=== PATIENT | male | born 1965 | race African-American/Black ===

== ENCOUNTER 2022-04-14 03:24 | Inpatient (IN) | payer BC, MEDICAID ==
[~2022-04-14] VITALS: Ht 180.3 cm; Wt 69.0 kg
[2022-04-14] MEDS ORDERED: SODIUM CHLORIDE 0.9% 1,000 ML IV ONE ×2 (04:15→08:00)
[2022-04-14] MEDS ORDERED: ONDANSETRON HCL 4 MG/2 ML VIAL IV ONE (04:15)
[2022-04-14 04:28] LABS: Basophils # (auto) 0.1 10 ^3/uL (0-0.2); Basophils % (auto) 0.4 % (0.0-2.0); Eosinophils # (auto) 0 10 ^3/uL (0-0.8); Hematocrit 39.4 % (41.0-53.0); Hemoglobin 13.5 g/dL (13.5-17.5); Lymphocytes # (auto) 1.1 10 ^3/uL (0.4-5.4); Lymphocytes % (auto) 7.9 % (10.0-50.0); Mean Corpuscular Hemoglobin 33.5 pg (28.0-32.0); Mean Corpuscular Hgb Conc. 34.1 g/dL (32.0-36.0); Mean Corpuscular Volume 98.2 fL (80.0-100.0); Monocytes # (auto) 1.1 10 ^3/uL (0-1.3); Monocytes % (auto) 8.1 % (0.0-12.0); Neutrophils # (auto) 11.5 10 ^3/uL (1.6-8.6); Neutrophils % (auto) 83.6 % (37.0-80.0); Red Blood Cells 4.02 10^6/uL (4.5-5.90); Red Cell Distribution Width 12.8 % (11.8-14.3); White Blood Cell 13.7 10^3/uL (4.4-10.8)
[2022-04-14 04:41] LABS: Potassium 3.3 mmol/L (3.5-5.1)
[2022-04-14 04:45] LABS: Albumin 3.6 g/dL (3.4-5.0); BUN/Creatinine Ratio 16.7; Calcium 9.2 mg/dL (8.5-10.1)
[2022-04-14 04:47] LABS: Bilirubin, Total 0.6 mg/dL (0.2-1.0); Total Protein 7.6 g/dL (6.4-8.2)
[2022-04-14] MEDS ORDERED: MORPHINE SULFATE 4 MG/ML SYR/VIAL IV ONE ×2 (05:45→08:00)
[2022-04-14] MEDS ORDERED: METOCLOPRAMIDE HCL 5MG/ml INJ 2ml VIAL IV ONE (08:00)
[2022-04-14] MEDS ORDERED: SODIUM CHLORIDE 0.9% 500 ML IVB ONE (08:00)
[2022-04-14] MEDS ORDERED: IOHEXOL 300 MG/ML 100ML BOTTLE IJ ONE (08:06)
[2022-04-14 08:58] LABS: Urine Bacteria NONE SEEN /hpf (None Seen); Urine Blood Negative /uL (Negative); Urine Specific Gravity 1.017 (1.001-1.035); Urine WBC 4 /hpf (0 - 3)
[2022-04-14] MEDS ORDERED: POTASSIUM EFFERVESENT TAB 25 MEQ PO ONE (10:00)
[2022-04-14] MEDS ORDERED: ONDANSETRON HCL 4 MG/2 ML VIAL IV PRN (12:00)
[2022-04-14] MEDS ORDERED: HYDROcodone-ACET 5/325MG TAB PO PRN (12:00)
[2022-04-14] MEDS ORDERED: metroNIDAZOLE 500MG/100ML 100 ML IV ONE (12:00)
[2022-04-14] MEDS ORDERED: ACETAMINOPHEN 325 MG TAB PO PRN (12:00)
[2022-04-14] MEDS: SODIUM CHLORIDE 0.9% 1,000 ML IV SCH ×2 (12:13→20:57)
[2022-04-14] MEDS ORDERED: PANTOPRAZOLE 40 MG/10 ML VIAL INJ IV ONE (12:15)
[2022-04-14 12:44] LABS: Alcohol, Urine < 3.0 mg/dL (0-10); Barbiturate Scree,Urine NEGATIVE (NEGATIVE)
[2022-04-14 12:53] LABS: Amphetamine Screen, Urine NEGATIVE (NEGATIVE); Benzodiazephine Screen, Urine NEGATIVE (NEGATIVE); Cannabinoid Screen, Urine POSITIVE (NEGATIVE); Cocaine Screen, Urine NEGATIVE (NEGATIVE); Opiate Scree,Urine POSITIVE (NEGATIVE); Phencyclidine Screen, Urine NEGATIVE (NEGATIVE)
[2022-04-14] MEDS ORDERED: methylPREDNISolone SOD SUCC 125 MG/2 ML VL IV ONE (13:00)
[2022-04-14 13:15] LABS: Cholesterol 182 mg/dL (< 200); HDL Cholesterol 89 mg/dL (40-59); LDL Cholesterol 82 mg/dL (< 100); Triglycerides 87 mg/dL (< 150)
[2022-04-14] MEDS: MORPHINE SULFATE INJ 2 MG/ml SYRG IV PRN ×2 (16:49→21:56)
[2022-04-14 17:00] VITALS: BP 148/67
[2022-04-14 17:01] VITALS: BP 148/67
[2022-04-14 20:00] VITALS: BP 130/65
[2022-04-14] MEDS: metroNIDAZOLE 500MG/100ML 100 ML IV SCH (21:39)
[2022-04-14 21:43] VITALS: BP 130/65
[2022-04-15] MEDS: hydrALAZINE HCL 20 MG/ML VL IV PRN ×2 (03:38→11:54)
[2022-04-15] MEDS: MORPHINE SULFATE INJ 2 MG/ml SYRG IV PRN ×4 (03:39→21:23)
[2022-04-15] MEDS: SODIUM CHLORIDE 0.9% 1,000 ML IV SCH ×3 (04:15→20:15)
[2022-04-15 05:00] VITALS: BP 132/66
[2022-04-15] MEDS: metroNIDAZOLE 500MG/100ML 100 ML IV SCH ×3 (05:21→21:22)
[2022-04-15 07:08] VITALS: BP 156/78
[2022-04-15 07:11] LABS: Basophils # (auto) 0 10 ^3/uL (0-0.2); Basophils % (auto) 0.2 % (0.0-2.0); Eosinophils # (auto) 0 10 ^3/uL (0-0.8); Hematocrit 36.6 % (41.0-53.0); Lymphocytes # (auto) 2.4 10 ^3/uL (0.4-5.4); Lymphocytes % (auto) 20.9 % (10.0-50.0); Mean Corpuscular Hemoglobin 32.4 pg (28.0-32.0); Mean Corpuscular Hgb Conc. 32.8 g/dL (32.0-36.0); Monocytes # (auto) 1.5 10 ^3/uL (0-1.3); Monocytes % (auto) 13.1 % (0.0-12.0); Neutrophils # (auto) 7.7 10 ^3/uL (1.6-8.6); Neutrophils % (auto) 65.8 % (37.0-80.0); Red Blood Cells 3.69 10^6/uL (4.5-5.90); Red Cell Distribution Width 12.6 % (11.8-14.3); White Blood Cell 11.7 10^3/uL (4.4-10.8)
[2022-04-15 07:49] LABS: Calcium 7.9 mg/dL (8.5-10.1); Potassium 3.7 mmol/L (3.5-5.1)
[2022-04-15 08:00] VITALS: BP 156/78
[2022-04-15] MEDS: levoFLOXacin 500MG 100 ML IV SCH (09:43)
[2022-04-15] MEDS: ENOXAPARIN SOD 40 MG/0.4 ML SYRINGE SC SCH (09:44)
[2022-04-15] MEDS: NICOTINE 7MG/24HR TOPICAL PATCH TD SCH (09:45)
[2022-04-15] MEDS ORDERED: PANTOPRAZOLE 40 MG/10 ML VIAL INJ IV SCH (10:00)
[2022-04-15 12:00] VITALS: BP 162/79
[2022-04-15] MEDS ORDERED: methylPREDNISolone SOD SUCC 40 MG/ML VL IV SCH (14:00)
[2022-04-15 16:32] VITALS: BP 153/75
[2022-04-15] MEDS: methylPREDNISolone SOD SUCC 40 MG/ML VL IV SCH (21:22)
[2022-04-15 22:00] VITALS: BP 177/87
[2022-04-16] MEDS: hydrALAZINE HCL 20 MG/ML VL IV PRN (00:37)
[2022-04-16] MEDS: MORPHINE SULFATE INJ 2 MG/ml SYRG IV PRN (02:14)
[2022-04-16 05:00] VITALS: BP 147/8
[2022-04-16] MEDS: metroNIDAZOLE 500MG/100ML 100 ML IV SCH ×2 (05:37→14:47)
[2022-04-16] MEDS: SODIUM CHLORIDE 0.9% 1,000 ML IV SCH (05:38)
[2022-04-16 08:00] VITALS: BP 152/79
[2022-04-16] MEDS ORDERED: LEVO500T31 PO (08:36)
[2022-04-16] MEDS ORDERED: METR500T PO (08:36)
[2022-04-16] MEDS ORDERED: METH4PAK PO (08:36)
[2022-04-16 09:00] VITALS: BP 152/79
[2022-04-16] MEDS: NICOTINE 7MG/24HR TOPICAL PATCH TD SCH (10:37)
[2022-04-16] MEDS: methylPREDNISolone SOD SUCC 40 MG/ML VL IV SCH (10:37)
[2022-04-16] MEDS: levoFLOXacin 500MG 100 ML IV SCH (10:38)
[2022-04-16] MEDS: ENOXAPARIN SOD 40 MG/0.4 ML SYRINGE SC SCH (10:38)
[2022-04-16 12:42] VITALS: BP 152/79
[2022-04-16 13:00] VITALS: BP 152/81
[2022-04-16 17:00] VITALS: BP 154/82
== END 2022-04-16 18:50 | disposition home or self-care (01) | DRG 385 ==
LOC: EDBD 03:24 → ER 03:29 → OVERFLOW 12:00 → CENTRAL 15:58
PROVIDERS: ADMIT Registered Nurse; ATTEND Family Medicine
DX: K50.90 Crohn's disease, unspecified, without complications (principal); K85.90 Acute pancreatitis without necrosis or infection, unspecified; I10 Essential (primary) hypertension; G43.D1 Abdominal migraine, intractable; D72.829 Elevated white blood cell count, unspecified; E87.6 Hypokalemia; G89.29 Other chronic pain; Z20.822 Contact with and (suspected) exposure to COVID-19; M19.90 Unspecified osteoarthritis, unspecified site; F19.10 Other psychoactive substance abuse, uncomplicated
CPT/HCPCS: 36415; 71046; 74177; 76705; 80048; 80053; 80061; 80307; 80320; 81001; 82150; 82270; 83036; 83690; 83735; 84443; 85025; 87045; 87081; 87086; 87426; 87427; 93005; 96361; 96374; 96375; C9113; G0378; J1956; J2405; J3490